=== PATIENT | male | born 1965 | race Caucasian/White ===

== ENCOUNTER 2017-10-27 11:45 | Emergency (ER) | payer BC, OTHER ==
[~2017-10-27] VITALS: Ht 170.2 cm; Wt 96.2 kg
[~2017-10-27 11:45] MED LIST: FENO160 PO; INSU100V9 SUBCUT; LISI10TA PO; METF-716 PO; OMEP40CA33 PO; OXYC-133 PO
[2017-10-27 11:52] VITALS: BP_SYST 145
[2017-10-27] MEDS ORDERED: IBUPROFEN 800 MG TABLET PO ONE (12:15)
[2017-10-27] MEDS ORDERED: HYDROcodone/ACETAMIN 10-325 MG TAB PO ONE (12:15)
[2017-10-27] MEDS ORDERED: MORPHINE SULFATE 10 MG/ML VIAL IM ONE (12:30)
[2017-10-27] MEDS ORDERED: ONDANSETRON 4 MG ODT TAB PO ONE (12:30)
[2017-10-27 12:39] LABS: BILIRUBIN,URINE NEGATIVE (NEGATIVE); BLOOD, URINE NEGATIVE (NEGATIVE); CLARITY/URINE CLEAR (CLEAR); COLOR,URINE YELLOW (YELLOW); GLUCOSE,URINE 3+ (NEGATIVE); KETONES,URINE NEGATIVE (NEGATIVE); LEUKOCYTE ESTERASE ,URINE NEGATIVE (NEGATIVE); NITRITE, URINE NEGATIVE (NEGATIVE); PH,URINE 5.5 (5.0-8.0); PROTEIN URINE NEGATIVE (NEGATIVE); UROBILINOGEN,URINE 0.2 (0.2-1.0)
[2017-10-27 12:46] LABS: BACTERIA,URINE RARE /HPF (None Seen); MUCUS,URINE None Seen /LPF (None Seen); RBC,URINE NONE SEEN /HPF (0-3); WBC,URINE NONE SEEN /HPF (0-3)
[2017-10-27 12:54] LABS: BASOPHILS % (AUTO) 0.3 % (0.0-2.0); CALCIUM 8.9 mg/dL (8.4-11.0); CREATININE 1.16 mg/dL (0.55-1.30); EOSINOPHILS # (AUTO) 0.1 K/uL (0.0-0.4); EOSINOPHILS % (AUTO) 1.7 % (0.0-4.0); HEMATOCRIT 36.9 % (36-54); HEMOGLOBIN 12.7 g/dL (14.0-18.0); LYMPHOCYTES # (AUTO) 1.8 K/uL (1.0-5.5); LYMPHOCYTES % (AUTO) 34.1 % (20.5-51.5); MEAN CORPUSCULAR HEMOGLOBIN 27 pg (27-31); MEAN CORPUSCULAR HGB CONC 35 % (32-36); MEAN CORPUSCULAR VOLUME 77 fL (79.0-98.0); MONOCYTES # (AUTO) 0.3 K/uL (0.0-1.0); MONOCYTES % (AUTO) 5.5 % (1.7-9.3); NEUTROPHILS # (AUTO) 3.1 K/uL (1.8-7.7); NEUTROPHILS % (AUTO) 58.4 % (40.0-70.0); PLATELET COUNT (AUTO) 175 K/uL (130-430); POTASSIUM 3.5 mmol/L (3.5-5.1); RED BLOOD CELL COUNT(AUTO) 4.77 MIL/uL (4.2-6.2); RED CELL DISTRIBUTION WIDTH 13.1 % (9.0-15.0); WHITE BLOOD COUNT (AUTO) 5.3 K/uL (4.8-10.8)
[2017-10-27 12:58] LABS: PROTHROMBIN TIME 9.9 SECS (9.5-12.5)
[2017-10-27 13:01] LABS: ALBUMIN 3.7 g/dL (3.4-4.8); TOTAL BILIRUBIN 0.7 mg/dL (0.0-1.0)
== END 2017-10-27 12:39 | disposition left against medical advice (07) ==
LOC: SED 11:45
DX: R10.12 Left upper quadrant pain (principal); R11.0 Nausea; E11.9 Type 2 diabetes mellitus without complications; I10 Essential (primary) hypertension; K21.9 Gastro-esophageal reflux disease without esophagitis; E78.00 Pure hypercholesterolemia, unspecified; Z90.49 Acquired absence of other specified parts of digestive tract; Z79.899 Other long term (current) drug therapy; Z98.890 Other specified postprocedural states; Z53.20 Procedure and treatment not carried out because of patient's decision for unspecified reasons
CPT/HCPCS: 36415; 80053; 81000-TC; 82150-TC; 83690-TC; 85025; 85610-TC; 85730-TC; 99284

== ENCOUNTER 2019-08-08 20:30 | Inpatient (IN) | payer OTHER ==
[~2019-08-08] VITALS: Ht 170.2 cm; Wt 93.9 kg
[~2019-08-08 20:30] MED LIST changes: -METF-716 PO; +METF-833 PO
[2019-08-08 20:48] VITALS: BP_SYST 165
[2019-08-08 21:36] LABS: BASOPHILS % (AUTO) 0.4 % (0.0-2.0); EOSINOPHILS % (AUTO) 0.2 % (0.0-4.0); HEMATOCRIT 41.5 % (36-54); HEMOGLOBIN 14.4 g/dL (14.0-18.0); MEAN CORPUSCULAR HEMOGLOBIN 26 pg (27-31); MEAN CORPUSCULAR HGB CONC 35 % (32-36); MEAN CORPUSCULAR VOLUME 76 fL (79.0-98.0); MONOCYTES # (AUTO) 0.2 K/uL (0.0-1.0); MONOCYTES % (AUTO) 2.6 % (1.7-9.3); NEUTROPHILS # (AUTO) 7.7 K/uL (1.8-7.7); NEUTROPHILS % (AUTO) 85.8 % (40.0-70.0); PLATELET COUNT (AUTO) 168 K/uL (130-430); RED BLOOD CELL COUNT(AUTO) 5.44 MIL/uL (4.2-6.2); RED CELL DISTRIBUTION WIDTH 14.7 % (9.0-15.0); WHITE BLOOD COUNT (AUTO) 8.9 K/uL (4.8-10.8)
[2019-08-08 21:51] LABS: CALCIUM 8.6 mg/dL (8.4-11.0); CREATININE 1.12 mg/dL (0.55-1.30); POTASSIUM 3.8 mmol/L (3.5-5.1)
[2019-08-08 21:56] LABS: ALBUMIN 4.2 g/dL (3.4-4.8); TOTAL BILIRUBIN 0.9 mg/dL (0.0-1.0)
[2019-08-08] MEDS ORDERED: NACL 0.9% 1,000 ML IV ONE (23:25)
[2019-08-08] MEDS ORDERED: MORPHINE 4 MG/ML INJ. SYRINGE IVP ONE (23:30)
[2019-08-08] MEDS ORDERED: DIPHENHYDRAMINE INJ 50 MG/ML VIAL IVP ONE (23:30)
[2019-08-08] MEDS ORDERED: ONDANSETRON HCL 4 MG/2 ML VIAL IVP ONE (23:30)
[2019-08-09] MEDS ORDERED: DIPHENHYDRAMINE INJ 50 MG/ML VIAL IVP ONE (01:30)
[2019-08-09] MEDS ORDERED: MORPHINE 2 MG/ML INJ. SYRINGE IVP ONE (01:30)
[2019-08-09] MEDS ORDERED: MORPHINE 2 MG/ML INJ. SYRINGE IVP PRN (03:30)
[2019-08-09 04:23] VITALS: BP_SYST 159
[2019-08-09] MEDS: D5NS 1,000 ML IV SCH ×2 (05:41→17:15)
[2019-08-09] MEDS ORDERED: OXYCODONE/ACETAMINOPHEN *10*mg/325 mg TABLET PO PRN (06:30)
[2019-08-09] MEDS ORDERED: DEXTROSE 50% JECT 50 ML DISP.SYRIN IVP PRN (06:30)
[2019-08-09] MEDS: PANTOPRAZOLE SODIUM 40 MG TAB PO SCH (06:52)
[2019-08-09 07:16] LABS: BASOPHILS % (AUTO) 0.4 % (0.0-2.0); EOSINOPHILS % (AUTO) 0.1 % (0.0-4.0); HEMATOCRIT 38.5 % (36-54); HEMOGLOBIN 13.5 g/dL (14.0-18.0); LYMPHOCYTES # (AUTO) 1.4 K/uL (1.0-5.5); LYMPHOCYTES % (AUTO) 19.4 % (20.5-51.5); MEAN CORPUSCULAR HEMOGLOBIN 27 pg (27-31); MEAN CORPUSCULAR HGB CONC 35 % (32-36); MEAN CORPUSCULAR VOLUME 76 fL (79.0-98.0); MONOCYTES # (AUTO) 0.2 K/uL (0.0-1.0); MONOCYTES % (AUTO) 2.8 % (1.7-9.3); NEUTROPHILS # (AUTO) 5.7 K/uL (1.8-7.7); NEUTROPHILS % (AUTO) 77.3 % (40.0-70.0); PLATELET COUNT (AUTO) 164 K/uL (130-430); RED BLOOD CELL COUNT(AUTO) 5.03 MIL/uL (4.2-6.2); RED CELL DISTRIBUTION WIDTH 14.7 % (9.0-15.0); WHITE BLOOD COUNT (AUTO) 7.4 K/uL (4.8-10.8)
[2019-08-09 08:18] LABS: CALCIUM 8.3 mg/dL (8.4-11.0); CREATININE 1.08 mg/dL (0.55-1.30); POTASSIUM 3.9 mmol/L (3.5-5.1)
[2019-08-09 08:26] VITALS: BP_SYST 157
[2019-08-09 08:29] LABS: ALBUMIN 3.8 g/dL (3.4-4.8); TOTAL BILIRUBIN 0.7 mg/dL (0.0-1.0)
[2019-08-09] MEDS: LISINOPRIL 10 MG TABLET (PRINIVIL) PO SCH (08:41)
[2019-08-09] MEDS: FENOFIBRATE 160 MG TABLET PO SCH (08:41)
[2019-08-09] MEDS: MORPHINE 4 MG/ML INJ. SYRINGE IVP PRN ×4 (09:52→22:40)
[2019-08-09] MEDS: INSULIN REGULAR, HUMAN 100 UNITS/ML, 10 ML VIAL (humuLIN R) SUBCUT PRN ×3 (11:50→23:45)
[2019-08-09 12:00] VITALS: BP_SYST 155
[2019-08-09] MEDS: ONDANSETRON HCL 4 MG/2 ML VIAL IVP PRN ×2 (14:31→18:31)
[2019-08-09 16:17] VITALS: BP_SYST 147
[2019-08-09 20:00] VITALS: BP_SYST 144
[2019-08-10 00:30] VITALS: BP_SYST 138
[2019-08-10] MEDS: ONDANSETRON HCL 4 MG/2 ML VIAL IVP PRN (04:15)
[2019-08-10] MEDS: MORPHINE 4 MG/ML INJ. SYRINGE IVP PRN ×2 (04:15→09:02)
[2019-08-10] MEDS: INSULIN REGULAR, HUMAN 100 UNITS/ML, 10 ML VIAL (humuLIN R) SUBCUT PRN ×2 (05:53→11:36)
[2019-08-10] MEDS: PANTOPRAZOLE SODIUM 40 MG TAB PO SCH (06:00)
[2019-08-10] MEDS: D5NS 1,000 ML IV SCH (06:00)
[2019-08-10 08:22] VITALS: BP_SYST 135
[2019-08-10] MEDS: FENOFIBRATE 160 MG TABLET PO SCH (09:01)
[2019-08-10] MEDS: LISINOPRIL 10 MG TABLET (PRINIVIL) PO SCH (09:01)
[2019-08-10 12:15] VITALS: BP_SYST 158
[2019-08-10 12:42] VITALS: BP_SYST 158
== END 2019-08-10 12:40 | disposition home or self-care (01) | DRG 282 ==
LOC: SED 20:30 → SMU 08-09 03:18
PROVIDERS: ADMIT Internal Medicine Hospice and Palliative Medicine; ATTEND Internal Medicine Hospice and Palliative Medicine
DX: K85.90 Acute pancreatitis without necrosis or infection, unspecified (principal); E11.9 Type 2 diabetes mellitus without complications; K21.9 Gastro-esophageal reflux disease without esophagitis; J40 Bronchitis, not specified as acute or chronic; F40.240 Claustrophobia; I10 Essential (primary) hypertension; E78.00 Pure hypercholesterolemia, unspecified; K86.1 Other chronic pancreatitis; Z86.73 Personal history of transient ischemic attack (TIA), and cerebral infarction without residual deficits; Z90.49 Acquired absence of other specified parts of digestive tract; Z79.899 Other long term (current) drug therapy
CPT/HCPCS: 36415; 76700-TC; 80053; 82962; 83690-TC; 85025; 96374; 96375; 96376; 99285; J1200; J1815; J2270; J2405; J7042

== ENCOUNTER 2020-01-02 06:03 | Emergency (ER) | payer OTHER ==
[~2020-01-02] VITALS: Ht 170.2 cm; Wt 93.9 kg
[2020-01-02 06:10] VITALS: BP_SYST 182
--- NOTE | 2020-01-02 06:10 | NUR ---
Note undone in ED - 01/02/20 at 0635 by [email or web address] Patient came from home. C/O hypertension x today. Patient states "had high blood pressure last night , BP 204/110 at home then took propranolol at 2300 and 3 hours ago, headache and nausea and could not sleep last night. " Hx mini CVA per patient last year. 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
--- NOTE | 2020-01-02 06:10 | NUR ---
Hx mini stroke x one year ago, Hospitalized 4 days.
--- NOTE | 2020-01-02 06:10 | NUR ---
Pt ambulatory to bed 7 for evaluation
--- NOTE | 2020-01-02 06:10 | NUR ---
Patient came from home. C/O hypertension x today. Patient states "had high blood pressure last night , BP 204/110 at home then took metroprolol at 2300 and 3 hours ago, headache and nausea and could not sleep last night. " Hx mini CVA per patient last year. 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
--- NOTE | 2020-01-02 06:14 | NUR ---
ER at bedside examining patient.
[2020-01-02] MEDS ORDERED: cloNIDine HCL 0.1 MG TABLET PO ONE (06:15)
--- NOTE | 2020-01-02 06:16 | NUR ---
Accu check 275, Dr. Duarte notified.
[2020-01-02] MEDS ORDERED: PROP20TA7 PO (06:30)
[2020-01-02] MEDS ORDERED: LISI40TA4 PO (06:37)
[2020-01-02] MEDS ORDERED: INSU100V SQ (06:38)
[2020-01-02] MEDS ORDERED: METO25TA6 PO (06:39)
[2020-01-02] MEDS ORDERED: INSULIN REGULAR, HUMAN 10 UNITS/0.1 ML INJ SUBCUT ONE (06:45)
--- NOTE | 2020-01-02 06:49 | NUR ---
Patient transported to radiology via gurney for CT scan, accompanied by forest resource specialist.
--- NOTE | 2020-01-02 07:01 | NUR ---
Patient came back from CT scan.
[2020-01-02] MEDS ORDERED: ONDANSETRON 4 MG ODT TAB PO ONE (07:15)
--- NOTE | 2020-01-02 07:20 | NUR ---
report received from Christine BURCH. Pt is currently in stable condition. pt's bp is 157/68. No other c/o at the moment
[2020-01-02 08:05] VITALS: BP_SYST 122
== END 2020-01-02 08:03 | disposition home or self-care (01) ==
LOC: SED 06:03
DX: I10 Essential (primary) hypertension (principal); R51 Headache; E11.9 Type 2 diabetes mellitus without complications; K21.9 Gastro-esophageal reflux disease without esophagitis; Z79.4 Long term (current) use of insulin; Z79.899 Other long term (current) drug therapy
CPT/HCPCS: 70450; 82962; 96372; 99285; J1815; Q0162

== ENCOUNTER 2023-12-02 02:37 | Emergency (ER) | payer OTHER ==
[~2023-12-02] VITALS: Ht 170.2 cm; Wt 90.7 kg
[~2023-12-02 02:37] MED LIST changes: -FENO160 PO; +INSU100V SQ; -INSU100V9 SUBCUT; -LISI10TA PO; +LISI40TA13 PO; -METF-833 PO; +NOR10 PO; +OMEP40CA20 PO; -OMEP40CA33 PO; -OXYC-133 PO
[2023-12-02 02:50] VITALS: BP_SYST 142; PULSE 65; RESP 18; TEMP 98.1; O2SAT 99
[2023-12-02] MEDS: DIPHENHYDRAMINE INJ 50 MG/ML VIAL IVP ONE (03:22)
[2023-12-02] MEDS: methylPREDNISolone SOD SUCC/PF 62.5 MG/ML VIAL IVP ONE (03:23)
[2023-12-02] MEDS: ONDANSETRON HCL 4 MG/2 ML VIAL IVP ONE (03:57)
[2023-12-02] MEDS ORDERED: DIPH25TA62 PO (05:33)
[2023-12-02] MEDS ORDERED: PRED50TA PO (05:33)
[2023-12-02 06:25] VITALS: BP_SYST 133; PULSE 74; O2SAT 96
== END 2023-12-02 06:09 | disposition home or self-care (01) ==
LOC: SED 02:37
DX: T78.49XA Other allergy, initial encounter (principal); E11.9 Type 2 diabetes mellitus without complications; I10 Essential (primary) hypertension; K21.9 Gastro-esophageal reflux disease without esophagitis; X58.XXXA Exposure to other specified factors, initial encounter
CPT/HCPCS: 99284; 96374; 96375; J1200; J2405; J2930